=== PATIENT | female | born 1995 | race Hispanic/Latino ===

== ENCOUNTER 2019-07-24 10:15 | Emergency (ER) | payer MEDICAID ==
[2019-07-24 10:45] LABS: APPEARANCE,URINE Clear (CLEAR); BILIRUBIN,URINE Negative (NEGATIVE); COLOR,URINE Yellow (YELLOW); GLUCOSE, URINE (UA) Negative (NEGATIVE); KETONES,URINE Negative (NEGATIVE); LEUKOCYTE ESTERASE ,URINE Negative (NEGATIVE); NITRATE,URINE Negative (NEGATIVE); OCCULT BLOOD,URINE Negative (NEGATIVE); PROTEIN,URINE Negative (NEGATIVE); UROBILINOGEN,URINE 0.2 mg/dL (0.2-1.0)
[2019-07-24] MEDS ORDERED: ONDANSETRON HCL 4 MG/2 ML VIAL ONE (11:08)
[2019-07-24 11:09] LABS: BASOPHILS % (AUTO) 0.5 % (0.0-5.0); EOSINOPHILS % (AUTO) 0.1 % (0.0-8.0); HEMATOCRIT 34.9 % (36-48); LYMPHOCYTES % (AUTO) 5.5 % (21.0-51.0); MEAN CORPUSCULAR HEMOGLOBIN 30.1 pg (27.0-33.0); MEAN CORPUSCULAR HGB CONC 34.1 g/dL (32.0-36.0); MEAN CORPUSCULAR VOLUME 88.2 fL (80-100); MONOCYTES % (AUTO) 4.4 % (3.0-13.0); NEUTROPHILS % (AUTO) 89.5 % (40.0-77.0); PLATELET COUNT (AUTO) 128 K/uL (130-400); RED BLOOD CELL COUNT(AUTO) 3.96 MIL/uL (4.00-5.50); RED CELL DISTRIBUTION WIDTH 13.1 % (11.0-15.5); WHITE BLOOD COUNT (AUTO) 8.6 K/uL (4.8-10.8)
[2019-07-24] MEDS ORDERED: SODIUM CHLORIDE 0.9% 1000ML 1,000 ML IV ONE (11:09)
[2019-07-24 11:22] LABS: CREATININE 0.5 mg/dL (0.5-1.5); POTASSIUM 3.6 mmol/L (3.5-5.1)
[2019-07-24 11:29] LABS: ALBUMIN 3.7 g/dL (3.5-5.0); BILIRUBIN,TOTAL 0.6 mg/dL (0.2-1.0); TOTAL PROTEIN, SERUM 6.8 g/dL (6.0-8.3)
== END 2019-07-24 12:00 | disposition home or self-care (01) ==
LOC: EDH 10:15
DX: O21.8 Other vomiting complicating pregnancy (principal); O26.891 Other specified pregnancy related conditions, first trimester; R19.7 Diarrhea, unspecified; R50.9 Fever, unspecified; Z90.49 Acquired absence of other specified parts of digestive tract; Z3A.09 9 weeks gestation of pregnancy
CPT/HCPCS: 36415; 80053; 81003; 83690; 85025; 96361; 96374; 99284; J2405; J7030

== ENCOUNTER 2019-08-16 09:00 | Emergency (ER) | payer MEDICAID | END 2019-08-16 11:50 | disposition home or self-care (01) | LOC: EDH 09:00 | DX: O20.0 Threatened abortion (principal); Z90.49 Acquired absence of other specified parts of digestive tract; Z3A.13 13 weeks gestation of pregnancy | CPT/HCPCS: 36415; 76801; 84702 ==

== ENCOUNTER 2020-01-02 13:37 | Observation (INO) | payer MEDICAID ==
[2020-01-02 15:13] LABS: APPEARANCE,URINE Clear (CLEAR); BILIRUBIN,URINE Negative (NEGATIVE); COLOR,URINE Yellow (YELLOW); GLUCOSE, URINE (UA) Negative (NEGATIVE); KETONES,URINE >=80 mg/dL (NEGATIVE); LEUKOCYTE ESTERASE ,URINE Negative (NEGATIVE); NITRATE,URINE Negative (NEGATIVE); OCCULT BLOOD,URINE Negative (NEGATIVE); PH,URINE 5.5 (5.0-8.0); PROTEIN,URINE Negative (NEGATIVE); UROBILINOGEN,URINE 0.2 mg/dL (0.2-1.0)
[2020-01-02] MEDS ORDERED: LACTATED RINGERS 1000ML 1,000 ML IV ONE ×2 (15:51)
[2020-01-02 16:10] LABS: RBC,URINE 0-1 /HPF (0-1)
[2020-01-02 16:11] LABS: BACTERIA,URINE Few /HPF (None Seen); SQUAMOUS EPITHELIAL CELL,UR 0-2 /HPF (0-2)
[2020-01-02] MEDS ORDERED: ONDANSETRON HCL 4 MG/2 ML VIAL IVP SCH (16:30)
== END 2020-01-02 18:15 | disposition home or self-care (01) ==
LOC: EDH 13:37 → LDH 13:52
PROVIDERS: ADMIT Obstetrics & Gynecology; ATTEND Obstetrics & Gynecology
DX: O21.2 Late vomiting of pregnancy (principal); R10.9 Unspecified abdominal pain; R19.7 Diarrhea, unspecified; Z3A.32 32 weeks gestation of pregnancy
CPT/HCPCS: 81001; 99284; G0378 ×4; J2405; J7120 ×3; 96360; 96361

== ENCOUNTER 2020-02-11 16:33 | Inpatient (IN) | payer MEDICAID ==
[~2020-02-11] VITALS: Ht 162.6 cm; Wt 81.6 kg
[2020-02-11] MEDS ORDERED: PROMETHAZINE HCL 25 MG/ML 1ML AMPULE IM PRN (17:00)
[2020-02-11] MEDS ORDERED: AMPICILLIN 2GM+NS 100ML 100 ML IV SCH (17:00)
[2020-02-11] MEDS ORDERED: MEPERIDINE-PF 50 MG/ML SYG IVP PRN (17:00)
[2020-02-11] MEDS ORDERED: LACTATED RINGERS 500 ML 500 ML IV PRN (17:00)
[2020-02-11] MEDS ORDERED: NALOXONE HCL 0.4 MG/1 ML ML IV PRN (17:00)
[2020-02-11] MEDS ORDERED: EPHEDRINE SULFATE 50 MG/ML AMPULE IVP PRN (17:00)
[2020-02-11 17:21] LABS: HEMATOCRIT 35.7 % (36-48); MEAN CORPUSCULAR HGB CONC 33.3 g/dL (32.0-36.0); MEAN CORPUSCULAR VOLUME 89.9 fL (79-99); RED BLOOD CELL COUNT(AUTO) 3.97 MIL/uL (4.00-5.50); RED CELL DISTRIBUTION WIDTH 12.7 % (11.0-15.5); WHITE BLOOD COUNT (AUTO) 12.1 K/uL (4.8-10.8)
[2020-02-11] MEDS: LACTATED RINGERS 1000ML 1,000 ML IV PRN (17:21)
[2020-02-11 17:22] LABS: BILIRUBIN,URINE Negative (NEGATIVE); COLOR,URINE Yellow (YELLOW); GLUCOSE, URINE (UA) Negative (NEGATIVE); KETONES,URINE Negative (NEGATIVE); LEUKOCYTE ESTERASE ,URINE Small (NEGATIVE); NITRATE,URINE Negative (NEGATIVE); OCCULT BLOOD,URINE Large (NEGATIVE); PROTEIN,URINE Negative (NEGATIVE)
[2020-02-11 17:29] LABS: APPEARANCE,URINE CLOUDY (CLEAR)
[2020-02-11 17:33] LABS: BACTERIA,URINE Few /HPF (None Seen)
[2020-02-11 17:34] LABS: SQUAMOUS EPITHELIAL CELL,UR Few /HPF (0-2)
[2020-02-11] MEDS ORDERED: DINOPROSTONE 10 MG VAGINAL SUPP VG SCH (19:15)
[2020-02-11] MEDS: AMPICILLIN 1GM+NS 50ML 50 ML IV SCH (22:46)
[2020-02-12] MEDS: AMPICILLIN 1GM+NS 50ML 50 ML IV SCH ×4 (02:16→21:42)
[2020-02-12] MEDS: LACTATED RINGERS 1000ML 1,000 ML IV PRN (02:16)
[2020-02-12] MEDS ORDERED: OXYTOCIN 10 USP UNITS/ML 20 UNIT in LACTATED RINGERS 1000ML 1,000 ML IV SCH (07:00)
[2020-02-12] MEDS ORDERED: OXYTOCIN-LR 20 UNITS/1000 ML 1,000 ML IV ONE (08:05)
[2020-02-12] MEDS ORDERED: FENTANYL CITRATE PF 50 MCG/1 ML 2ML VIAL ONE (11:30)
[2020-02-12] MEDS ORDERED: METHYLERGONOVINE MALEATE 0.2 MG/1 ML ML ONE (15:12)
[2020-02-12] MEDS ORDERED: LIDOCAINE HCL 1% 20 ML VIAL ONE (15:12)
[2020-02-12] MEDS ORDERED: ACETAMINOPHEN-CODEINE 300/30MG TAB PO PRN (15:45)
[2020-02-12] MEDS ORDERED: MEASLES/MUMPS/RUBELLA VACCINE, LIVE 0.5 ML/VIAL SQ PRN (15:45)
[2020-02-12] MEDS ORDERED: OXYTOCIN-LR 20 UNITS/1000 ML 1,000 ML IV SCH ×2 (15:45→16:00)
[2020-02-12] MEDS ORDERED: WITCH HAZEL 1 PAD TP PRN (15:45)
[2020-02-12] MEDS ORDERED: LANOLIN 30GM OINTMENT TP PRN (15:45)
[2020-02-12] MEDS ORDERED: DIPH,PERTUSS(ACELL),TET VAC/PF 0.5 ML VIAL IM PRN (15:45)
[2020-02-12] MEDS ORDERED: ACETAMINOPHEN 325 MG TAB PO PRN (15:45)
[2020-02-12] MEDS ORDERED: BENZOCAINE/LANOLIN/ALOE VERA 60 ML AEROSOL TP PRN (15:45)
[2020-02-12 17:45] VITALS: BP 118/60
--- NOTE | 2020-02-12 17:45 | NUR ---
PATIENT ARRIVED TO UNIT FROM LABOR AND DELIVERY VIA WHEELCHAIR. NO C/O PAIN. FUNDUS IS FIRM, BLEEDING IS SCANT. PATIENT REPORTS VOIDING BEFORE BEING TRANSFERRED, DENIES DIZZINESS WHEN AMBULATING. USE AND DESIRED EFFECTS OF LANOLIN, DERMAPLAST SPRAY, SITZ BATH AND TUCKS PADS EXPLAINED TO PATIENT AND AT BEDSIDE. QUESTIONS INVITED AND ANSWERED. CALL LIGHT LEFT IN REACH. ADVISED PATIENT TO CALL WHEN NEEDING TO AMBULATE FOR THE FIRST TIME.
[2020-02-12] MEDS: IBUPROFEN 600 MG TABLET PO PRN (18:56)
[2020-02-12] MEDS ORDERED: PNV1TABL17 PO (19:15)
[2020-02-12 20:07] VITALS: BP 103/64
[2020-02-12] MEDS: DOCUSATE SODIUM 100 MG CAP PO SCH (21:03)
[2020-02-13 00:30] VITALS: BP 110/63
[2020-02-13 03:59] VITALS: BP 104/59
[2020-02-13 07:01] LABS: HEMATOCRIT 34.3 % (36-48); MEAN CORPUSCULAR HEMOGLOBIN 30.4 pg (27.0-33.0); MEAN CORPUSCULAR HGB CONC 33.5 g/dL (32.0-36.0); MEAN CORPUSCULAR VOLUME 90.7 fL (79-99); RED BLOOD CELL COUNT(AUTO) 3.78 MIL/uL (4.00-5.50); RED CELL DISTRIBUTION WIDTH 12.6 % (11.0-15.5); WHITE BLOOD COUNT (AUTO) 14.6 K/uL (4.8-10.8)
[2020-02-13 07:49] VITALS: BP 98/56
[2020-02-13 08:09] LABS: HEPATITIS Bs ANTIGEN SCREEN P Negative (Negative)
--- NOTE | 2020-02-13 08:20 | NUR ---
ASSESSMENT: RECEIVED RESTING IN BED, EXPLAINED POC AND UNDERSTANDING VERBALIZED, CALL RICE AT HER SIDE. INSTRUCTED ON SITZ BATH, MATTHEW CARE AND UNDERSTANDING VERBALIZED, RETURNED DEMONSTRATION.
[2020-02-13] MEDS: DOCUSATE SODIUM 100 MG CAP PO SCH (08:25)
[2020-02-13] MEDS: IBUPROFEN 600 MG TABLET PO PRN ×2 (08:26→16:19)
--- NOTE | 2020-02-13 09:19 | NUR ---
ASSESSMENT: Kael YUEN CNM ASSESSED PT AND DISCUSSED POC.
[2020-02-13 11:53] VITALS: BP 107/63
--- NOTE | 2020-02-13 12:58 | NUR ---
DISCHARGE: DISCHARGE INSTRUCTIONS GIVEN TO PT AND ON SELF CARE POST VAGINAL DELIVERY, SITZ BATH TID, BREAST FEEDING. REVIEWED RX'S FOR HOME MEDS AND TO CALL SATURDAY MORNING TO DR CORTÉS'S OFFICE AND MAKE FOLLOW UP APPT FOR 1-2 WEEKS. UNDERSTANDING VERBALIZED AND COPIES OF ALL INSTRUCTIONS GIVEN TO PT
--- NOTE | 2020-02-13 13:28 | NUR ---
HYGEINE: TOOK SITZ BATH AND SHOWER.
[2020-02-13 16:00] VITALS: BP 99/66
--- NOTE | 2020-02-13 17:35 | NUR ---
DISCHARGE: DISCHARGED HOME WITH HER BABY, VIA W/C TO PRIVATE CAR WITH .
== END 2020-02-13 17:35 | disposition home or self-care (01) | DRG 560 ==
LOC: LDH 16:33 → WSH 02-12 17:45 → EDSTATUS 02-22 15:48
PROVIDERS: ADMIT Obstetrics & Gynecology; ATTEND Obstetrics & Gynecology
PROC: 3E0P7VZ Introduction of Hormone into Female Reproductive, Via Natural or Artificial Opening (ICD-10-PCS; principal; 2020-02-12)
PROC: 10E0XZZ Delivery of Products of Conception, External Approach (ICD-10-PCS; 2020-02-12)
PROC: 10907ZC Drainage of Amniotic Fluid, Therapeutic from Products of Conception, Via Natural or Artificial Opening (ICD-10-PCS; 2020-02-12)
PROC: 3E033VJ Introduction of Other Hormone into Peripheral Vein, Percutaneous Approach (ICD-10-PCS; 2020-02-12)
PROC: 0KQM0ZZ Repair Perineum Muscle, Open Approach (ICD-10-PCS; 2020-02-12)
PROC: 3E0234Z Introduction of Serum, Toxoid and Vaccine into Muscle, Percutaneous Approach (ICD-10-PCS; 2020-02-12)
PROC: 3E0134Z Introduction of Serum, Toxoid and Vaccine into Subcutaneous Tissue, Percutaneous Approach (ICD-10-PCS; 2020-02-12)
PROC: 3E0R3BZ Introduction of Anesthetic Agent into Spinal Canal, Percutaneous Approach (ICD-10-PCS; 2020-02-12)
PROC: 00HU33Z Insertion of Infusion Device into Spinal Canal, Percutaneous Approach (ICD-10-PCS; 2020-02-12)
DX: O69.1XX0 Labor and delivery complicated by cord around neck, with compression, not applicable or unspecified (principal); Z37.0 Single live birth; K21.9 Gastro-esophageal reflux disease without esophagitis; O99.62 Diseases of the digestive system complicating childbirth; O70.1 Second degree perineal laceration during delivery; Z3A.39 39 weeks gestation of pregnancy; Z23 Encounter for immunization; O99.824 Streptococcus B carrier state complicating childbirth
CPT/HCPCS: 36415; 81001; 85027; 86592; 86850; 86900; 86901; 87088; 87340; A4314; G0378; J0290; J2175; J2210; J2550; J2590; J3010; J7120

== ENCOUNTER 2025-09-04 08:55 | Emergency (ER) | payer MEDICAID ==
[~2025-09-04] VITALS: Ht 167.6 cm; Wt 77.6 kg
[~2025-09-04 08:55] MED LIST: PNV1TABL17 PO
[2025-09-04 09:13] LABS: IMMATURE GRANULOCYTE ABSOLUTE 0.04 K/uL (0-1); NUCLEATED RED BLOOD CELLS 0.0 % (0.0-0.19); PLATELET COUNT (AUTO) 150 K/uL (130-400); RED BLOOD CELL COUNT(AUTO) 4.00 MIL/uL (4.00-5.50); RED CELL DISTRIBUTION WIDTH 12.9 % (11.0-15.5); WHITE BLOOD COUNT (AUTO) 7.5 K/uL (4.8-10.8)
--- NOTE | 2025-09-04 09:16 | ERN ---
General Chief Complaint: Vomiting in Stated Complaint: NAUSEA, VOMITING, ABDOMINAL CRAMPS, 14 WEEK PREGNA Time Seen by MD: 09:00 History of Present Illness Initial Comments 29-year-old female A0 14 weeks who presents to emergency room with a evaluation of nausea, vomiting, abdominal pain cramps. Patient states for the past week she has been having generalized nausea and vomiting. Worsened over the past 48 hours. She also has cough and generalized body aches. She was concerned about the cough which was worse at night thus she came to the emergency room for evaluation. Allergies: Coded Allergies: No Known Drug Allergies (Unverified Allergy, Unknown, 08/16/19) Home Meds Reported Medications Pnv Cmb#21/Iron/Folic Acid ( Complete Caplet) 1 Each Tablet, 1 EACH PO DAILY, TAB 02/12/20 Past Medical History Past Medical History: No Pertinent History Past Surgical History: Appendectomy Female( History) : 2 Para: 1 Aborts: 0 Constitutional: (+) chills Respiratory: (+) cough Gastrointestinal/Abdominal: (+) nausea, (+) vomiting; (-) diarrhea Review of Systems: was completed, & the rest were negative. Physical Exam Physical Exam Dictation GENERAL APPEARANCE NAD, activity normal for age, well developed/ well nourished, no cyanosis, pallor, or diaphoresis. EYES lids/conjunctiva normal. EARS/NOSE/THROAT Mucous membranes moist, nares normal, lips/teeth normal uvula midline without oral pharyngeal erythema, exudate or swelling TMs normal bilaterally. No lymphangitis/lymphedema. HEAD/NECK normocephalic atraumatic, no facial trauma, neck is supple. RESPIRATORY respiratory effort normal, speaks in full sentences, no tripod position, no accessory muscle use. Lungs clear to auscultation without rhonchi, wheezes, rales CARDIAC Regular rate and rhythm, no edema. ABDOMINAL gravid abdomen Soft, ND/NT. No evidence of fluid wave. No pulsatile masses on exam, rebound tenderness, Diaz sign or pain over Mcburney's point. MUSCLES/EXTREMITIES No abnormal range of motion, no swelling. SKIN Warm, pink and dry. No rashes, dermatoses, petechiae or lesions. NEUROLOGICAL Speech is clear and appropriate. Normal level of consciousness. Gait and coordination are normal. 5/5 strength in all extremities. PSYCH Normal mood and affect. Judgement/competence is appropriate Results Laboratory and Microbiology Lab and Micro Result Laboratory Tests Test 09/04/25 09:02 09/04/25 09:06 09/04/25 10:17 Influenza Type A Antigen Negative For Type A Influenza Type B Antigen Negative For Type B SARS-CoV-2 Antigen (Rapid) PRESUMPTIVE NEGATIVE Group A Streptococcus Rapid negative (NEGATIVE) White Blood Count 7.5 K/uL (4.8-10.8) Red Blood Count 4.00 MIL/uL (4.00-5.50) Hemoglobin 11.9 g/dL (12.0-16.0) L Hematocrit 35.5 % (36-48) L Mean Corpuscular Volume 88.8 fL (79-99) Mean Corpuscular Hemoglobin 29.8 pg (27.0-33.0) Mean Corpuscular Hemoglobin Concent 33.5 g/dL (32.0-36.0) Red Cell Distribution Width 12.9 % (11.0-15.5) Platelet Count 150 K/uL (130-400) Mean Platelet Volume 12.0 fL (7.5-10.5) H Immature Granulocyte % (Auto) 0.5 % (0-1) Neutrophils (%) (Auto) 74.3 % (40.0-77.0) Lymphocytes (%) (Auto) 15.9 % (21.0-51.0) L Monocytes (%) (Auto) 5.7 % (3.0-13.0) Eosinophils (%) (Auto) 2.9 % (0.0-8.0) Basophils (%) (Auto) 0.7 % (0.0-5.0) Neutrophils # (Auto) 5.6 K/uL (1.8-7.7) Lymphocytes # (Auto) 1.2 K/uL (1.0-4.8) Monocytes # (Auto) 0.4 K/uL (0.1-1.0) Eosinophils # (Auto) 0.22 K/uL (0.00-0.70) Basophils # (Auto) 0.05 K/uL (0.00-0.20) Absolute Immature Granulocyte (auto 0.04 K/uL (0-1) Nucleated Red Blood Cells 0.0 % (0.0-0.19) Sodium Level 136 mmol/L (136-145) Potassium Level 3.8 mmol/L (3.5-5.1) Chloride Level 102 mmol/L (101-111) Carbon Dioxide Level 26 mmol/L (21-32) Blood Urea Nitrogen 6 mg/dL (7-18) L Creatinine 0.4 mg/dL (0.5-1.0) L Glomerular Filtration Rate Calc 139 mL/min (>90) Random Glucose 115 mg/dL (70-105) H Total Calcium 8.9 mg/dL (8.5-10.1) Urine Color COLORLESS (YELLOW) Urine Appearance CLEAR (CLEAR) Urine pH 7.5 (5.0-8.0) Urine Specific [place] 1.008 (1.001-1.031) Urine Protein NEGATIVE mg/dL (NEGATIVE) Urine Glucose (UA) NEGATIVE mg/dL (NEGATIVE) Urine Ketones NEGATIVE mg/dL (NEGATIVE) Urine Occult Blood NEGATIVE (NEGATIVE) Urine Nitrate NEGATIVE (NEGATIVE) Urine Bilirubin NEGATIVE mg/dL (NEGATIVE) Urine Urobilinogen 0.2 mg/dL (0.2-1.0) Urine Leukocyte Esterase NEGATIVE Joo/uL EKG/XRAY/US/CT/MRI Ultrasound Comment heart tones in the 140s. Baby at 15 weeks. MDM MDM: DIFFERENTIAL DIAGNOSIS: Cough, URI, gastroenteritis RATIONALE: TESTS CONSIDERED AND ORDERED SECONDARY TO SHARED DECISION MAKING INCLUDE: PREVIOUS OUTSIDE RECORDS REVIEWED: OLD ER VISITS. RISK OF COMPLICATION AND/OR MORBIDITY OR MORTALITY OF PATIENT MANAGEMENT: NONE MEDICATIONS-PER MEDICATION RECONCILIATION NEED FOR HOSPITALIZATION: PATIENT DOES NOT MEET CRITERIA FOR HOSPITALIZATION. NEED FOR EMERGENCY MAJOR/MINOR SURGERY: NO THERE ARE NO SOCIAL CONCERNS WITH THIS PATIENT. PRESCRIPTION DRUG MANAGEMENT PRESCRIPTIONS WILL INCLUDE SYMPTOMATIC CARE PATIENT'S PRIOR EXTERNAL MEDICAL RECORDS FROM OTHER ER VISITS WERE REVIEWED BY ME INDICATED. PRIOR TESTING AND RESULTS FROM PREVIOUS VISITS WERE REVIEWED. PRIOR TESTS WERE TAKEN INTO ACCOUNT WITH MEDICAL DECISION MAKING AND RESOURCE UTILIZATION, INDEPENDENT HISTORIAN/HISTORIANS WERE USED TO OBTAIN COMPLETE MEDICAL HISTORY. I INDEPENDENTLY INTERPRETED THE TEST THAT WERE PERFORMED, RESULTS WERE REVIEWED BY ME AND CONSIDERED FINDINGS ON RADIOLOGY IF ORDERED. MEDICAL MANAGEMENT AND EXAMINATION INTERPRETATION DISCUSSIONS WERE HAD BY ME WITH OTHER QUALIFIED HEALTHCARE PROFESSIONALS INDICATED FOR THE PATIENT'S CARE. ED Course Orders Procedure Category Date Status Time Cbc With Differential LAB 09/04/25 Complete 09:00 Basic Metabolic Panel LAB 09/04/25 Complete 09:00 Ondansetron 4mg Inj PHA 09/04/25 Complete (Zofran 4mg Inj) 09:00 0.9%Nacl 1000ml (Ns PHA 09/04/25 In Process 1000ml) 09:00 Covid19 (Sars Antigen LAB 09/04/25 Complete Rapid) 09:01 Influenza Type A & B, LAB 09/04/25 Complete Rapid 09:01 Rapid (Group A Strep) LAB 09/04/25 Complete 09:01 Covid19 (Sars Antigen LAB 09/04/25 Logged Rapid) 09:11 Urinalysis Profile LAB 09/04/25 Complete 10:13 Us Ob >14 Weeks US 09/04/25 Taken 10:30 Current Medications Medications (Trade) Dose Ordered Sig/Joel Route PRN Reason Start Time Stop Time Status Last Admin Dose Admin Ondansetron HCl (zoFRAN 4MG INJ) 4 mg ONCE ONCE IVP 09/04/25 09:00 09/04/25 09:03 DC 09/04/25 09:45 Sodium Chloride 1,000 ml @ 0 mls/hr Q0M IV 09/04/25 09:00 10/04/25 08:59 09/04/25 09:46 Vital Signs Date Time Temp Pulse Resp B/P (MAP) Pulse Ox O2 Delivery O2 Flow Rate FiO2 09/04/25 10:01 71 17 101/54 100 Room Air* 0 21 09/04/25 08:57 97.9 85 16 120/56 100 Room Air DX & DISP Disposition: Discharge Departure Impression: Primary Impression: URI (upper respiratory infection) Additional Impressions: Intrauterine , Nausea/vomiting in Condition: Stable Scripts Ondansetron (Ondansetron Odt) 4 Mg Tab.rapdis 1 TAB PO Q6HPRN PRN for nausea/vomiting for 4 Days, #16 TAB 0 Refills Prov: CHRISTIE MCMAHAN MD 09/04/25 Guaifenesin (Guaifenesin) 400 Mg Tablet 1 TAB PO TID for cough for 5 Days, #15 TAB 0 Refills Prov: CHRISTIE MCMAHAN MD 09/04/25 Sodium Chloride (Nasal Purvis) 0.65 % Purvis 1 SPRAY NS 5XDAY for 7 Days, #44 ML 0 Refills Prov: CHRISTIE MCMAHAN MD 09/04/25 Benzocaine/Menthol (Cepacol Sore Throat Lozenge) 15 Mg-3.6 Mg Lozenge 1 TAB PO Q4H for sore throat for 3 Days, #18 TAB 0 Refills Prov: CHRISTIE MCMAHAN MD 09/04/25 Referrals: RICHY CORTÉS MD (PCP) CHRISTIE MCMAHAN MD Sep 04, 2025 09:16
[2025-09-04 09:21] LABS: CREATININE 0.4 mg/dL (0.5-1.0); GLOMERULAR FILTR. RATE CALC 139.0 mL/min (>90); GLUCOSE,RANDOM 115.0 mg/dL (70-105); SODIUM SERUM 136.0 mmol/L (136-145); UREA NITROGEN, BLOOD 6.0 mg/dL (7-18)
[2025-09-04 09:28] LABS: RAPID GROUP A STREP negative (NEGATIVE)
[2025-09-04 09:38] LABS: COVID19 (SARS ANTIGEN RAPID) PRESUMPTIVE NEGATIVE (NEGATIVE); INFLUENZA TYPE A Negative For Type A (NEGATIVE); INFLUENZA TYPE B Negative For Type B (NEGATIVE)
[2025-09-04] MEDS: 0.9%NACL 1000ML 1,000 ML IV SCH (09:46)
[2025-09-04 10:30] LABS: APPEARANCE,URINE CLEAR (CLEAR); GLUCOSE, URINE (UA) NEGATIVE (NEGATIVE); LEUKOCYTE ESTERASE ,URINE NEGATIVE Leu/uL (NEGATIVE); NITRATE,URINE NEGATIVE (NEGATIVE); OCCULT BLOOD,URINE NEGATIVE (NEGATIVE)
[2025-09-04 10:35] LABS: ADD UA MICROSCOPIC NO
[2025-09-04] MEDS ORDERED: SODI44SP13 NS (11:09)
[2025-09-04] MEDS ORDERED: BENZ1LOZ81 PO (11:09)
[2025-09-04] MEDS ORDERED: GUAI400T94 PO (11:09)
[2025-09-04] MEDS ORDERED: ONDA-243 PO (11:09)
[2025-09-04 11:13] VITALS: BP 116/66; PULSE 75; RESP 17; TEMP 98; O2SAT 100
--- NOTE | 2025-09-04 11:33 | HMCIMG ---
EXAM: US Obstetrical, Complete >14 weeks. CLINICAL HISTORY: CRAMPING TECHNIQUE: Transabdominal imaging of the maternal pelvis and a > 14 week gestation with image documentation. COMPARISON: None provided. FINDINGS: FETUS: There is a single living intrauterine gestation. POSITION: position is breech presentation with oblique lie. HEART RATE: The heart rate is 140 beats per minute. BIOMETRICS: Based on composite biometry, the estimated gestational age by ultrasound is 14 weeks 5 days. BPD 2.75 cm corresponds to 14 weeks and 6 days. HC 10.46 cm corresponds to 15 weeks and 0 days. AC 8.38 cm corresponds to 14 weeks and 5 days. FL 0.42 cm corresponds to 14 weeks and 2 days. Estimated weight: 99 g. ANATOMIC SURVEY: The visualized anatomy (lateral ventricles, choroid plexus, cerebellum, cisterna magna, stomach, kidneys, spine, cord insertion, and three-vessel cord) is unremarkable. PLACENTA: The placenta is posterior. No sonographic evidence for previa or abruption. AMNIOTIC FLUID: 8.67 cm. Within normal limits. CERVIX: Closed. Unremarkable as visualized. IMPRESSION: 1. Single live intrauterine at 14 weeks 5 days gestation. 2. Breech presentation with oblique lie. 3. Unremarkable anatomic survey. /[place]
== END 2025-09-04 11:15 | disposition home or self-care (01) ==
LOC: EDH 08:55
DX: O99.512 Diseases of the respiratory system complicating pregnancy, second trimester (principal); J06.9 Acute upper respiratory infection, unspecified; O26.892 Other specified pregnancy related conditions, second trimester; O21.9 Vomiting of pregnancy, unspecified; Z20.822 Contact with and (suspected) exposure to COVID-19; Z3A.14 14 weeks gestation of pregnancy; Z90.49 Acquired absence of other specified parts of digestive tract
CPT/HCPCS: 99285; 96374; 76805; 96361; 87426; 80048; 85025; 87880; 87804 ×2; 81003; 36415; J7030; J2405